=== PATIENT | male | born 1990 | race Hispanic/Latino ===

== ENCOUNTER 2018-09-10 23:59 | Emergency (ER) | payer SELFPAY ==
[2018-09-11 00:42] VITALS: BP 106/62; RESP 18; TEMP 99.5
[2018-09-11] MEDS ORDERED: Benzocaine/Menthol (Cepacol) Lozenge MT STA (00:51)
--- NOTE | 2018-09-11 01:57 | ED PDOC ---
Arrival/HPI - General Chief Complaint: ENT Problem Time Seen by Provider: 09/11/18 00:32 Historian: Patient - History of Present Illness Narrative History of Present Illness (Text): 09/11/18 00:51 A 28 year old male with no significant past medical history presents to the emergency room complaining of a sore throat for the past 4 days. Patient states pain is worse upon swallowing. Associated subjective fever with productive co ugh. Patient states he took 2 tablets of tylenol and some left over amoxicillin tonight at 10:30pm to no relief. Denies flu shot. Patient denies any sick contacts, recent travel, difficulty tolerating PO, throat swelling, drooling, chest pain, dizziness, shortness of breath, nausea, vomiting, abdominal pain, headache, neck pain/stiffness or any other complaints. Time/Duration: < week (4 days) Symptom Onset: Gradual Symptom Course: Unchanged Activities at Onset: Light Context: Home Past Medical History - Provider Review Nursing Documentation Reviewed: Yes - Psychiatric Hx Substance Use: No Family/Social History - Physician Review Nursing Documentation Reviewed: Yes Family/Social History: No Known Family HX Smoking Status: Never Smoked Hx Alcohol Use: No Hx Substance Use: No Allergies/Home Meds Allergies/Adverse Reactions: Allergies No Known Allergies Allergy (Verified 09/11/18 00:36) Review of Systems - Physician Review All systems were reviewed & negative as marked: Yes - Review of Systems Constitutional: Fevers Eyes: Normal. absent: Vision Changes, Photophobia ENT: Sore Throat, Sinus Congestion Respiratory: Cough (productive), Sputum. absent: SOB Cardiovascular: Normal. absent: Chest Pain, Palpitations, Syncope Gastrointestinal: Normal. absent: Abdominal Pain, Nausea, Vomiting Genitourinary Male: Normal Musculoskeletal: Normal. absent: Back Pain, Neck Pain Skin: Normal. absent: Rash Neurological: Normal. absent: Headache, Dizziness Physical Exam Vital Signs Reviewed: Yes Vital Signs Temp Pulse Resp BP Pulse Ox 09/11/18 00:36 99.5 F 98 H 18 106/62 96 Temperature: Afebrile Blood Pressure: Normal Pulse: Regular Respiratory Rate: Normal Appearance: Positive for: Well-Appearing, Non-Toxic, Comfortable Pain Distress: None Mental Status: Positive for: Alert and Oriented X 3 - Systems Exam Head: Present: Atraumatic, Normocephalic Pupils: Present: PERRL Extroacular Muscles: Present: EOMI Conjunctiva: Present: Normal Mouth: Present: Moist Mucous Membranes Pharnyx: Present: ERYTHEMA (erythema of soft palate and bilateral tonsils). No: EXUDATE, TONSILS ENLARGED, Peritonsilar Swelling, Uvular Deviation, Muffled/Hoarse Voice, Strider, Soft Palate/Uvular Edema, Other (no drooling) Neck: Present: Normal Range of Motion. No: Meningeal Signs Respiratory/Chest: Present: Clear to Auscultation, Good Air Exchange. No: Respi ratory Distress, Accessory Muscle Use Cardiovascular: Present: Regular Rate and Rhythm, Normal S1, S2, Peripheal Pulses Present Abdomen: Present: Normal Bowel Sounds. No: Tenderness, Distention, Peritoneal Signs, Rebound, Guarding Back: Present: Normal Inspection. No: CVA Tenderness Upper Extremity: Present: Normal Inspection, Normal ROM, NORMAL PULSES, Neurovascularly Intact, Capillary Refill < 2s. No: Temperature Abnormalties Lower Extremity: Present: Normal ROM Neurological: Present: GCS=15, CN II-XII Intact, Speech Normal, Motor Func Grossly Intact, Normal Sensory Function, Gait Normal Skin: Present: Warm, Dry, Normal Color. No: Rashes Lymphatic: No: Cervical Adenopathy Psychiatric: Present: Alert, Oriented x 3, Normal Insight, Normal Concentration, Normal Affect, Normal Mood Medical Decision Making ED Course and Treatment: 09/11/18 00:51 Impression: 28 year old male presenting to the emergency room complaining of a sore throat. Plan: -- Chest X-ray -- Cepacol -- Toradol -- Rapid strep test -- Influenza AB test -- Reassess and disposition Prior Visits: Notes and results from previous visits were reviewed. Progress Notes: Rapid Flu POSITIVE for influenza B Rapid strep negative CXR shows no infiltrate as read by me Patient outside of tamiflu treatment window. Advised supportive treatments and PMD followup. Diagnostic testing results and plan of care discussed with patient. Strict instructions given regarding prescription use, importance of followup, and signs/symptoms to return to ER including SOB, chest pain, difficulty breathing, or any other new/worsening symptoms. Pt verbalized understanding of discussion. Patient is A&Ox3, ambluating with steady gait, with vital signs stable for disc harge. - Lab Interpretations Lab Results: Lab Results 09/11/18 01:02: Influenza Typ A,B (EIA) Pos for influenza b H 09/11/18 01:02: Grp A Beta Strep Ag Negative I have reviewed the lab results: Yes - RAD Interpretation Radiology Orders: 09/11/18 00:43 CXR (PA/LAT) [CHEST TWO VIEWS (PA/LAT)] [RAD] Stat - Medication Orders Current Medication Orders: Discontinued Medications Benzocaine/Menthol (Cepacol Sore Throat) 1 lidia MT STAT STA Stop: 09/11/18 00:52 Last Admin: 09/11/18 01:28 Dose: 1 lidia Ketorolac Tromethamine (Toradol) 60 mg IM STAT STA Stop: 09/11/18 00:52 Last Admin: 09/11/18 01:28 Dose: 60 mg MAR Pain Assessment Document 09/11/18 01:28 SS (Rec: 09/11/18 01:28 [facility] [email or web address] Pain Reassessment Is this a pain reassessment? No Presence of Pain Presence of Pain Yes IM Administration Charges Document 09/11/18 01:28 SS (Rec: 09/11/18 01:28 [facility] [email or web address] Charges for Administration # of IM Administrations 1 - Scribe Statement The provider has reviewed the documentation as recorded by the Christie Vasquez All medical record entries made by the Swatiibe were at my direction and personally dictated by me. I have reviewed the chart and agree that the record accurately reflects my personal performance of the history, physical exam, medical decision making, and the department course for this patient. I have also personally directed, reviewed, and agree with the discharge instructions and disposition. Disposition/Present on Arrival - Present on Arrival Any Indicators Present on Arrival: No History of DVT/PE: No History of Uncontrolled Diabetes: No Urinary Catheter: No History of Decub. Ulcer: No History Surgical Site Infection Following: None - Disposition Have Diagnosis and Disposition been Completed?: Yes Diagnosis: Influenza B Disposition: HOME/ ROUTINE Disposition Time: 01:45 Patient Plan: Discharge Patient Problems: Current Active Problems Problem Status Onset Influenza B Acute Condition: IMPROVED Discharge Instructions (ExitCare): Flu, Adult (DC) Additional Instructions: Ibuprofen every 6 hours for fever Tylenol every 4 hours for fever Tessalon every 8 hours as needed for cough Cepacol every 4 hours as needed for sore throat Increase fluids Rest, no strenuous activity Followup with primary doctor within 2 days Return to ER with any new/worsening symptoms Prescriptions: Benzocaine/Menthol [Cepacol Sore Throat] 1 lidia MM Q4 PRN #30 lidia PRN Reason: Sore Throat Benzonatate [Tessalon Perle] 100 mg PO Q8H PRN #15 capsule PRN Reason: Cough Ibuprofen [Motrin Tab] 600 mg PO Q8 PRN #30 tab PRN Reason: Pain, Moderate (4-7) Referrals: [facility] [place] - Follow up with primary Mary Cordero MD [Medical Doctor] - Follow up with primary Forms: [facility] (Danish), WORK NOTE
[2018-09-11 02:33] VITALS: PULSE 78; O2SAT 100
--- NOTE | 2018-09-11 08:55 | RAD ---
HISTORY: cough, fever COMPARISON: None available TECHNIQUE: Chest PA and lateral, 2 views FINDINGS: LUNGS: Hyperinflation may be seen in the setting of COPD. No focal consolidation. Please note that chest x-ray has limited sensitivity for the detection of pulmonary masses. PLEURA: No significant pleural effusion identified. No definite pneumothorax . CARDIOVASCULAR: The cardiomediastinal silhouette appears within normal limits of size. No atherosclerotic calcification present. OSSEOUS STRUCTURES: No acute osseous abnormality identified. VISUALIZED UPPER ABDOMEN: Unremarkable. OTHER FINDINGS: None. IMPRESSION: Hyperinflation.
== END 2018-09-11 03:02 | disposition home or self-care (01) ==
LOC: ED 23:59
DX: J10.1 Influenza due to other identified influenza virus with other respiratory manifestations (principal)
CPT/HCPCS: 71046; 87070; 87430; 87804; 96372; 99282; J1885